=== PATIENT | male | born 1940 | race Caucasian/White ===

== ENCOUNTER 2018-02-02 08:37 | Day surgery (SDC) | payer MEDICARE, OTHER ==
[~2018-02-02 08:37] MED LIST: Cefuroxime 10 MG/ML SYRINGE EYERT SCH; Lidocaine 1% PF 2 ML SDV INJECT SCH; Pilocarpine 4% Ophth Soln 15 ML Bot EYERT SCH
[2018-02-02] MEDS: Polymyxin B/Trimethoprim 10 ML Bottle EYERT SCH ×3 (09:07→10:52)
--- NOTE | 2018-02-02 09:11 | PCM.PREANE ---
Preanesthetic Assessment - Procedure Proposed Procedure: cataract right eye - Anesthesia/Transfusion/Family Hx Anesthesia History: Prior Anesthesia Without Reaction Family History of Anesthesia Reaction: No Transfusion History: No Prior Transfusion(s) - Review of Systems General: No Symptoms Pulmonary: Shortness of Breath (used to smoke) Cardiovascular: No Symptoms Gastrointestinal: Diarrhea, Other (crohns) Neurological: No Symptoms Other: Reports: Sinus Problem - Physical Assessment NPO Status Date: 02/01/18 NPO Status Time: 21:00 (water 0730 sip) Pulse: 86 O2 Sat by Pulse Oximetry: 93 Respiratory Rate: 16 Blood Pressure: 136/84 Temperature: 97.7 F Height: 5 ft 11 in Weight: 68.039 kg ASA Class: 2 Mental Status: Alert & Oriented x3 Airway Class: Mallampati = 1 Dentition: Reports: Normal Dentition (and bottom), Dentures Thyro-Mental Finger Breadths: 3 Mouth Opening Finger Breadths: 3 ROM/Head Extension: Full Lungs: Clear to Auscultation, Normal Respiratory Effort Cardiovascular: Regular Rate, Regular Rhythm - Allergies Allergies/Adverse Reactions: Allergies Allergy/AdvReac Type Severity Reaction Status Date / Time No Known Allergies Allergy Verified 06/15/15 00:59 - Blood Blood Available: No - Acknowledgements Anesthesia Type Planned: MAC Pt an Appropriate Candidate for the Planned Anesthesia: Yes Alternatives and Risks of Anesthesia Discussed w Pt/Guardian: Yes Pt/Guardian Understands and Agrees with Anesthesia Plan: Yes PreAnesthesia Questionnaire Cardiovascular History: Reports: None Respiratory History: Reports: Asthma Other Gastrointestinal History: crohns Genitourinary History: Reports: Other (See Below) (kidney stones) Musculoskeletal History: Reports: Arthritis (little hands and back) Oncologic (Cancer) History: Reports: None - Past Surgical History Neurological Surgical History: Reports: Other (See Below) (spur off back) - History Comment History Comment: no meds - SUBSTANCE USE Smoking Status *Q: Former Smoker (quit 6 years ago) Tobacco Use Within Last Twelve Months: No Second Hand Smoke Exposure: No Days Per Week of Alcohol Use: 0 Recreational Drug Use History: No - CURRENT (IN HOUSE) MEDS Current Meds: Current Medications Brimonidine Tartrate (Alphagan 0.2% Ophth Soln) 0 ml EYERT ASDIRECTED NIURKA Stop: 02/02/18 19:00 Cefuroxime Sodium (Zinacef) 0 mg EYERT ASDIRECTED NIURKA Stop: 02/02/18 19:00 Lidocaine HCl (Xylocaine-Mpf 1%) 0 ml INJECT ASDIRECTED NIURKA Stop: 02/02/18 19:00 Phenylephrine HCl ([place]-Synephrine 2.5% Ophth Soln) 0 ml EYERT ASDIRECTED NIURKA Stop: 02/02/18 19:00 Pilocarpine HCl (Pilocar 4% Ophth Soln) 0 ml EYERT ASDIRECTED NIURKA Stop: 02/02/18 19:00 Polymyxin/Trimethoprim Sulfate (Polytrim Ophth Soln) 0 ml EYERT ASDIRECTED NIURKA Stop: 02/02/18 19:00 Tetracaine HCl (Tetracaine 0.5% Steri-Unit Rosita) 0 ml EYERT ASDIRECTED NIURKA Stop: 02/02/18 19:00 Tropicamide (Mydriacyl 1% Ophth Soln) 0 ml EYERT ASDIRECTED NIURKA Stop: 02/02/18 19:00
[2018-02-02] MEDS: Brimonidine 0.2% Ophth Soln 5 ML Bottle EYERT SCH ×3 (09:14→10:52)
[2018-02-02] MEDS: Phenylephrine 2.5% Ophth Soln 2 ML Bot EYERT SCH ×6 (09:20→10:36)
[2018-02-02] MEDS: Tropicamide 1% Ophth Soln 3 ML Bottle EYERT SCH ×4 (09:25→10:13)
[2018-02-02] MEDS: Tetracaine HCl/PF 0.5% 4 ML Bottle EYERT SCH ×2 (10:26→10:43)
--- NOTE | 2018-02-02 11:02 | PCM48HPAN ---
Post Anesthesia Note - EVALUATION WITHIN 48HRS OF ANESTHETIC Vital Signs in Normal Range: Yes Patient Participated in Evaluation: Yes Respiratory Function Stable: Yes Airway Patent: Yes Cardiovascular Function Stable: Yes Hydration Status Stable: Yes Pain Control Satisfactory: Yes Nausea and Vomiting Control Satisfactory: Yes Mental Status Recovered: Yes Pulse Rate: 86 SaO2: 100 Resp Rate: 16 Temperature: 36.5 C Blood Pressure: 136/84 Pulse Rate: 70
[2018-02-02 11:07] VITALS: BP 119/77
== END 2018-02-02 11:04 | disposition home or self-care (01) ==
LOC: JD.SDS 08:37
PROVIDERS: ATTEND Ophthalmology
DX: H25.813 Combined forms of age-related cataract, bilateral (principal); H40.002 Preglaucoma, unspecified, left eye; H11.823 Conjunctivochalasis, bilateral; H02.831 Dermatochalasis of right upper eyelid; H02.834 Dermatochalasis of left upper eyelid; M19.90 Unspecified osteoarthritis, unspecified site; J45.909 Unspecified asthma, uncomplicated; K50.90 Crohn's disease, unspecified, without complications; Z87.891 Personal history of nicotine dependence
CPT/HCPCS: 66984; C1780; J0697; J2001; A9270-GY

== ENCOUNTER 2018-03-02 07:46 | Day surgery (SDC) | payer MEDICARE, OTHER ==
--- NOTE | 2018-03-02 08:01 | PCM.PREANE ---
Preanesthetic Assessment - Anesthesia/Transfusion/Family Hx Anesthesia History: Prior Anesthesia Without Reaction Transfusion History: No Prior Transfusion(s) - Review of Systems General: No Symptoms, Other (arthritis) Pulmonary: Shortness of Breath, Other (asthma) Cardiovascular: No Symptoms Gastrointestinal: Other (crohns disease) Neurological: No Symptoms Other: Reports: None - Physical Assessment NPO Status Date: 03/01/18 NPO Status Time: 22:00 Pulse: 89 O2 Sat by Pulse Oximetry: 94 Blood Pressure: 127/80 Weight: 68.039 kg ASA Class: 3 Mental Status: Alert & Oriented x3 Airway Class: Mallampati = 1 Dentition: Reports: Normal Dentition Thyro-Mental Finger Breadths: 3 Mouth Opening Finger Breadths: 3 ROM/Head Extension: Full Lungs: Clear to Auscultation, Normal Respiratory Effort Cardiovascular: Regular Rate, Regular Rhythm - Allergies Allergies/Adverse Reactions: Allergies Allergy/AdvReac Type Severity Reaction Status Date / Time No Known Allergies Allergy Verified 03/01/18 10:08 - Blood Blood Available: No Product(s) Available: None - Anesthesia Plan Pre-Op Medication Ordered: None - Acknowledgements Anesthesia Type Planned: MAC Pt an Appropriate Candidate for the Planned Anesthesia: Yes Alternatives and Risks of Anesthesia Discussed w Pt/Guardian: Yes Pt/Guardian Understands and Agrees with Anesthesia Plan: Yes PreAnesthesia Questionnaire Cardiovascular History: Reports: None Respiratory History: Reports: Asthma Other Gastrointestinal History: crohns Genitourinary History: Reports: Other (See Below) (kidney stones) Musculoskeletal History: Reports: Arthritis (little hands and back) Oncologic (Cancer) History: Reports: None - Past Surgical History Neurological Surgical History: Reports: Other (See Below) (spur off back) - History Comment History Comment: no meds - HOME MEDS Home Medications: Home Meds . [No Known Home Meds] 03/01/18 [History] - CURRENT (IN HOUSE) MEDS Current Meds: Current Medications Brimonidine Tartrate (Alphagan 0.2% Ophth Soln) 0 ml EYELF ASDIRECTED NIURKA Stop: 03/02/18 18:00 Cefuroxime Sodium (Zinacef) 0 mg EYELF ASDIRECTED NIURKA Stop: 03/02/18 18:00 Lidocaine HCl (Xylocaine-Mpf 1%) 0 ml INJECT ASDIRECTED NIURKA Stop: 03/02/18 18:00 Phenylephrine HCl ([place]-Synephrine 2.5% Ophth Soln) 0 ml EYELF ASDIRECTED NIURKA Stop: 03/02/18 18:00 Pilocarpine HCl (Pilocar 4% Ophth Soln) 0 ml EYELF ASDIRECTED NIURKA Stop: 03/02/18 18:00 Polymyxin/Trimethoprim Sulfate (Polytrim Ophth Soln) 0 ml EYELF ASDIRECTED NIURKA Stop: 03/02/18 18:00 Tetracaine HCl (Tetracaine 0.5% Steri-Unit Rosita) 0 ml EYELF ASDIRECTED NIURKA Stop: 03/02/18 18:00 Tropicamide (Mydriacyl 1% Ophth Soln) 0 ml EYELF ASDIRECTED NIURKA Stop: 03/02/18 18:00
[2018-03-02] MEDS: Phenylephrine 2.5% Ophth Soln 2 ML Bot EYELF SCH ×6 (08:09→10:19)
[2018-03-02] MEDS: Tetracaine HCl/PF 0.5% 4 ML Bottle EYELF SCH ×3 (08:10→10:25)
[2018-03-02] MEDS: Cefuroxime 10 MG/ML SYRINGE EYELF SCH ×2 (08:10→10:33)
[2018-03-02] MEDS: Lidocaine 1% PF 2 ML SDV INJECT SCH ×2 (08:10→10:25)
[2018-03-02] MEDS: Pilocarpine 4% Ophth Soln 15 ML Bot EYELF SCH ×2 (08:11→10:34)
[2018-03-02] MEDS: Brimonidine 0.2% Ophth Soln 5 ML Bottle EYELF SCH ×4 (08:11→10:34)
[2018-03-02] MEDS: Polymyxin B/Trimethoprim 10 ML Bottle EYELF SCH ×4 (08:12→10:34)
[2018-03-02] MEDS: Tropicamide 1% Ophth Soln 15 ML Bottle EYELF SCH ×4 (08:45→09:46)
--- NOTE | 2018-03-02 10:36 | PCM48HPAN ---
Post Anesthesia Note - EVALUATION WITHIN 48HRS OF ANESTHETIC Vital Signs in Normal Range: Yes Patient Participated in Evaluation: Yes Respiratory Function Stable: Yes Airway Patent: Yes Cardiovascular Function Stable: Yes Hydration Status Stable: Yes Pain Control Satisfactory: Yes Nausea and Vomiting Control Satisfactory: Yes Mental Status Recovered: Yes Pulse Rate: 66 SaO2: 100 Resp Rate: 16 Temperature: 36.9 C Blood Pressure: 128/81
[2018-03-02 10:45] VITALS: BP 112/64
== END 2018-03-02 10:41 | disposition home or self-care (01) ==
LOC: JD.SDS 07:46
PROVIDERS: ATTEND Ophthalmology
DX: H25.812 Combined forms of age-related cataract, left eye (principal); H40.003 Preglaucoma, unspecified, bilateral; J45.909 Unspecified asthma, uncomplicated; J32.9 Chronic sinusitis, unspecified; K50.90 Crohn's disease, unspecified, without complications; M19.90 Unspecified osteoarthritis, unspecified site; Z79.899 Other long term (current) drug therapy; Z98.41 Cataract extraction status, right eye; Z96.1 Presence of intraocular lens; Z87.891 Personal history of nicotine dependence; Z83.518 Family history of other specified eye disorder
CPT/HCPCS: 66984; C1780; J0697; A9270-GY; J2001

== ENCOUNTER 2020-11-23 08:23 | Emergency (ER) | payer MEDICARE, OTHER ==
--- NOTE | 2020-11-23 08:36 | EDM.PDOC ---
ED HPI GENERAL MEDICAL PROBLEM - General Chief Complaint: Genitourinary Problem Stated Complaint: BLOOD IN URINE Time Seen by Provider: 11/23/20 08:44 Source of Information: Reports: Patient History Limitations: Reports: No Limitations - History of Present Illness INITIAL COMMENTS - FREE TEXT/NARRATIVE: 80-year-old male presents to the ED with gross hematuria which she started noting yesterday. It is painless. Urine is dark blood in color. Was slightly more cranberry juice looking yesterday. Some clots appreciated this morning with passage of urine. It did not stop his urinary flow. He has no backache. No fever chills nausea or vomiting. No previous surgery on his prostate gland. Known to have kidney stones. Last problems with kidney stones was in 2014 when he passed a stone. No history of penile or perianal trauma. Patient denies taking aspirin or any other antiplatelet medications or blood thinners. He feels fine otherwise. 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.) - Related Data Allergies Allergy/AdvReac Type Severity Reaction Status Date / Time No Known Allergies Allergy Verified 03/02/18 08:05 Home Meds: Home Meds Betamethasone Valerate 45 gm TP DAILY #1 tube 11/23/20 [Rx] levoFLOXacin [Levaquin] 500 mg PO DAILY #9 tab 11/23/20 [Rx] Past Medical History HEENT History: Reports: Cataract (Bilateral cataract extractions and intraocular lens implants.) Cardiovascular History: Reports: None Respiratory History: Reports: Asthma Other Gastrointestinal History: crohns Genitourinary History: Reports: Other (See Below) (kidney stones) Musculoskeletal History: Reports: Arthritis (little hands and back) Oncologic (Cancer) History: Reports: None - Past Surgical History GI Surgical History: Reports: Other (See Below) (Left lower quadrant colostomy performed in 1986 for diverticulitis. For what ever reason he has never had it reversed.) Neurological Surgical History: Reports: Other (See Below) (spur off back) - History Comment History Comment: no meds Social & Family History - Living Situation & Occupation Living situation: Reports: Occupation: Retired ED ROS GENERAL - Review of Systems Review Of Systems: See Below Constitutional: Denies: Fever, Chills, Malaise, Weakness, Fatigue, Decreased Appetite, Weight Loss HEENT: Reports: Glasses, Other (Patient has had previous cataract extractions and intraocular lens implants) Respiratory: Reports: No Symptoms Cardiovascular: Reports: No Symptoms Endocrine: Reports: No Symptoms GI/Abdominal: Reports: No Symptoms : Reports: Other (Painless gross hematuria starting yesterday. No known BPH. No previous urinary tract infection. Nocturia usually 1 and often does not get up at all.). Denies: Dysuria, Flank Pain, Irregular Menses, Pain Musculoskeletal: Reports: Joint Pain Skin: Reports: No Symptoms (Knees hips low back neck and shoulders at times.). Denies: Bruising Neurological: Reports: No Symptoms Psychiatric: Reports: No Symptoms Hematologic/Lymphatic: Reports: No Symptoms Immunologic: Reports: No Symptoms ED EXAM, RENAL/ - Physical Exam Exam: See Below Exam Limited By: No Limitations General Appearance: Alert, WD/WN, No Apparent Distress, Other (Temperature is 36.3 degrees. Heart rate is 89 and sinus. Respiratory is 18 with O2 sats of 95% room air BP slightly elevated 151/81) Eye Exam: Bilateral Eye: Normal Inspection (No blepharal pallor or scleral icterus), PERRL Throat/Mouth: Normal Inspection, Normal Lips, Normal Oropharynx Head: Atraumatic, Normocephalic Neck: Normal Inspection, Supple, Non-Tender, Full Range of Motion. No: Lymphadenopathy (L), Lymphadenopathy (R) Respiratory/Chest: No Respiratory Distress, Lungs Clear, Normal Breath Sounds, No Accessory Muscle Use Cardiovascular: Normal Peripheral Pulses, Regular Rate, Rhythm, No Edema, No Gallop, No Murmur, No Rub GI/Abdominal: Normal Bowel Sounds, Soft, Non-Tender, No Organomegaly, No Distention, No Abnormal Bruit, Pelvis Stable, Other (Colostomy draining dark brown fluid left lower quadrant of the abdomen.) (Male) Exam: Other (Urethral meatus is normal. Glans penis is normal as well. Foreskin is easily retractable.). No: Circumcised Back Exam: Normal Inspection, Full Range of Motion. No: CVA Tenderness (L), CVA Tenderness (R) Extremities: Normal Inspection, Normal Range of Motion, Non-Tender, No Pedal Edema Neurological: Alert, Oriented, CN II-XII Intact, Normal Cognition Psychiatric: Normal Affect, Normal Mood Skin Exam: Warm, Dry, Intact, Normal Color, No Rash Course - Vital Signs Last Recorded V/S: Last Vital Signs Temp 36.3 C 11/23/20 08:38 Pulse 89 11/23/20 08:38 Resp 18 11/23/20 08:38 BP 151/81 H 11/23/20 08:38 Pulse Ox 95 11/23/20 08:38 - Orders/Labs/Meds Orders: Active Orders 24 hr Category Date Time Status Abdomen Pelvis w Cont [CT] Stat Exams 11/23/20 08:51 Taken CULTURE URINE [RM] Stat Lab 11/23/20 08:49 Stop Req Dextrose 5%-0.9% NaCl [Dextrose 5%-Normal Saline] 1,000 Med 11/23/20 09:00 Active ml IV ASDIRECTED Sodium Chloride 0.9% [Saline Flush] Med 11/23/20 08:56 Active 10 ml FLUSH ONETIME PRN Medication Orders Dextrose/Sodium Chloride (Dextrose 5%-Normal Saline) 1,000 mls @ 150 mls/hr IV ASDIRECTED NIURKA Last Infusion: 11/23/20 10:49 Dose: 999 mls/hr Documented by: Admin: 11/23/20 09:03 Dose: 150 mls/hr Documented by: AMBER Sodium Chloride (Sodium Chloride 0.9% 10 Ml Syringe) 10 ml FLUSH ONETIME PRN PRN Reason: Keep Vein Open Last Admin: 11/23/20 10:23 Dose: 10 ml Documented by: MCKENZIE Labs: Laboratory Tests 11/23/20 11/23/20 11/23/20 Range/Units 08:49 09:03 09:03 WBC 4.73 (4.23-9.07) K/mm3 RBC 4.20 L (4.63-6.08) M/mm3 Hgb 13.1 L (13.7-17.5) gm/dl Hct 40.4 (40.1-51.0) % MCV 96.2 H (79.0-92.2) fl MCH 31.2 (25.7-32.2) pg MCHC 32.4 (32.2-35.5) g/dl RDW Std Deviation 50.5 H (35.1-43.9) fL Plt Count 233 (163-337) K/mm3 MPV 9.4 (9.4-12.3) fl Neut % (Auto) 59.7 (34.0-67.9) % Lymph % (Auto) 22.8 (21.8-53.1) % [place] % (Auto) 11.8 (5.3-12.2) % Eos % (Auto) 5.1 (0.8-7.0) Baso % (Auto) 0.4 (0.1-1.2) % Neut # (Auto) 2.82 (1.78-5.38) K/mm3 Lymph # (Auto) 1.08 L (1.32-3.57) K/mm3 [place] # (Auto) 0.56 (0.30-0.82) K/mm3 Eos # (Auto) 0.24 (0.04-0.54) K/mm3 Baso # (Auto) 0.02 (0.01-0.08) K/mm3 PT (9.7-12.0) SECONDS INR APTT (21.7-31.4) SECONDS Sodium 142 (136-145) mEq/L Potassium 3.7 (3.5-5.1) mEq/L Chloride 105 (98-107) mEq/L Carbon Dioxide 28 (21-32) mEq/L Anion Gap 12.7 (5-15) BUN 17 (7-18) mg/dL Creatinine 1.4 H (0.7-1.3) mg/dL Est Cr Clr Drug Dosing 41.85 mL/min Estimated GFR (MDRD) 49 (>60) mL/min BUN/Creatinine Ratio 12.1 L (14-18) Glucose 91 (83-115) mg/dL Calcium 8.4 L (8.5-10.1) mg/dL Total Bilirubin 0.5 (0.2-1.0) mg/dL AST 21 (15-37) U/L ALT 23 (16-63) U/L Alkaline Phosphatase 78 (46-116) U/L C-Reactive Protein 0.2 (<1.0) mg/dL Total Protein 6.8 (6.4-8.2) g/dl Albumin 3.3 L (3.4-5.0) g/dl Globulin 3.5 gm/dL Albumin/Globulin Ratio 0.9 L (1-2) PSA Screen (0.0-4.0) ng/mL Urine Color Brown H (Yellow) Urine Appearance Cloudy H (Clear) Urine pH 6.0 (5.0-8.0) Ur Specific [place] > or = 1.030 (1.005-1.030) Urine Protein 3+ H (Negative) Urine Glucose (UA) Negative (Negative) Urine Ketones Negative (Negative) Urine Occult Blood 3+ H (Negative) Urine Nitrite Negative (Negative) Urine Bilirubin 2+ H (Negative) Urine Urobilinogen 0.2 (0.2-1.0) Ur Leukocyte Esterase Trace H (Negative) Urine RBC Too numerous to cnt H (0-5) /hpf Urine WBC 5-10 H (0-5) /hpf Ur Transition Epith Cell 0-5 (0-5) Amorphous Sediment Many H (NOT SEEN) /hpf Urine Bacteria Many H (FEW) /hpf Urine Mucus Many H (FEW) /hpf 11/23/20 11/23/20 Range/Units 09:03 09:03 WBC (4.23-9.07) K/mm3 RBC (4.63-6.08) M/mm3 Hgb (13.7-17.5) gm/dl Hct (40.1-51.0) % MCV (79.0-92.2) fl MCH (25.7-32.2) pg MCHC (32.2-35.5) g/dl RDW Std Deviation (35.1-43.9) fL Plt Count (163-337) K/mm3 MPV (9.4-12.3) fl Neut % (Auto) (34.0-67.9) % Lymph % (Auto) (21.8-53.1) % [place] % (Auto) (5.3-12.2) % Eos % (Auto) (0.8-7.0) Baso % (Auto) (0.1-1.2) % Neut # (Auto) (1.78-5.38) K/mm3 Lymph # (Auto) (1.32-3.57) K/mm3 [place] # (Auto) (0.30-0.82) K/mm3 Eos # (Auto) (0.04-0.54) K/mm3 Baso # (Auto) (0.01-0.08) K/mm3 PT 10.0 (9.7-12.0) SECONDS INR 0.93 APTT 25.4 (21.7-31.4) SECONDS Sodium (136-145) mEq/L Potassium (3.5-5.1) mEq/L Chloride (98-107) mEq/L Carbon Dioxide (21-32) mEq/L Anion Gap (5-15) BUN (7-18) mg/dL Creatinine (0.7-1.3) mg/dL Est Cr Clr Drug Dosing mL/min Estimated GFR (MDRD) (>60) mL/min BUN/Creatinine Ratio (14-18) Glucose (83-115) mg/dL Calcium (8.5-10.1) mg/dL Total Bilirubin (0.2-1.0) mg/dL AST (15-37) U/L ALT (16-63) U/L Alkaline Phosphatase (46-116) U/L C-Reactive Protein (<1.0) mg/dL Total Protein (6.4-8.2) g/dl Albumin (3.4-5.0) g/dl Globulin gm/dL Albumin/Globulin Ratio (1-2) PSA Screen 1.4 (0.0-4.0) ng/mL Urine Color (Yellow) Urine Appearance (Clear) Urine pH (5.0-8.0) Ur Specific [place] (1.005-1.030) Urine Protein (Negative) Urine Glucose (UA) (Negative) Urine Ketones (Negative) Urine Occult Blood (Negative) Urine Nitrite (Negative) Urine Bilirubin (Negative) Urine Urobilinogen (0.2-1.0) Ur Leukocyte Esterase (Negative) Urine RBC (0-5) /hpf Urine WBC (0-5) /hpf Ur Transition Epith Cell (0-5) Amorphous Sediment (NOT SEEN) /hpf Urine Bacteria (FEW) /hpf Urine Mucus (FEW) /hpf Meds: Medications Generic Name Dose Route Start Last Admin Trade Name Carmina PRN Reason Stop Dose Admin Dextrose/Sodium Chloride 1,000 mls @ 150 mls/hr 11/23/20 09:00 11/23/20 10:49 Dextrose 5%-Normal Saline IV 999 mls/hr ASDIRECTED NIURKA Infusion Sodium Chloride 10 ml 11/23/20 08:56 11/23/20 10:23 Sodium Chloride 0.9% 10 Ml Syringe FLUSH 10 ml ONETIME PRN Administration Keep Vein Open Discontinued Medications Generic Name Dose Route Start Last Admin Trade Name Frenany PRN Reason Stop Dose Admin Iopamidol 100 ml 11/23/20 08:56 11/23/20 10:23 Iopamidol 612 Mg/Ml 100 Ml Bottle IVPUSH 11/23/20 08:57 100 ml ONETIME ONE Administration Levofloxacin 500 mg 11/23/20 11:01 11/23/20 11:14 Levofloxacin 250 Mg Tab PO 11/23/20 11:02 500 mg ONETIME ONE Administration - Radiology Interpretation Free Text/Narrative:: 80-year-old male presents to the ED with history of gross hematuria starting yesterday. It remains painless. He is passing some clots at times but it is not interrupted his urinary flow. Denies any backache nausea or vomiting. He has a remote history of kidney stones with the last attack in about 2014. No problems with his prostate his knowledge and yearly PSAs have been normal. Urine passed in the ED is very dark bloody in color. Benign abdominal examination benign genitourinary exam. Plan urinalysis will be obtained. Routine labs will be obtained as well. Baseline hemoglobin will be obtained. PSA will be repeated. Coags will be done as well. Plan CT the abdomen with IV contrast only. - Re-Assessments/Exams Free Text/Narrative Re-Assessment/Exam: 11/23/20 10:00 Total white count is normal at 4.73. Differential shows 60% neutrophils on the auto differential. Hemoglobin is 13.1 with hematocrit of 40.4. Platelet count is normal at 233,000. PT is 10.0 with an INR of 0.93 PTT is 25.4 urine is dark brown in color. 3+ proteinuria 3+ occult blood 2+ bilirubin and trace of leukocyte Estrace on the dip. The micro reveals too numerous to count red blood cells and 5-10 WBCs. Many amorphous segment many bacteria appreciated. Therefore urine culture will be ordered. 11/23/20 10:10 Chemistry is now back. Sodium is 142 with a potassium of 3.7. Chloride 105 with a bicarb of 28. Anion gap is 12.7. BUN is 17 with a creatini ne of 1.4 and a GFR of 49. Calcium is 8.4 liver function normal C-reactive protein is less than 0.2. Total protein 6.8 with an albumin fraction of 3.3. Renal function is borderline for IV contrast but we will volume load the patient once he returns from CT. 11/23/20 11:03 CT of the abdomen and pelvis has been performed with IV contrast only. It does reveal a small hiatal hernia. Visualized portions of the lung bases are clear. Liver appears homogeneous . There is a mass involving the right lower lobe of the liver. This has the appearance of a hemangioma. Is approximately 3 cm in size with some peripheral nodular enhancement. No calcified gallstones are evident. Pancreas appears normal. Spleen is normal. Both kidneys filled with contrast adequately and there is no evidence of abnormalities within the kidneys or ureters. Compared to previous ultrasound the left-sided hydronephrosis and ureteral stone have cleared. The previous stone in the right renal collecting system is no longer evident either. The left kidney again contains a cyst. Urinary bladder shows slight thickening of the short of the bladder suggesting hypertrophy versus infection. There is scattered increased stool throughout the colon. He has a ileostomy in his left upper quadrant of the abdomen. There are operative changes in the rectal fossa. No evidence of appendicitis. No free air or significant free fluid in the pelvis. The abdominal aorta is nonaneurysmal. Atherosclerotic calcifications are present. No enlarged lymph nodes identified. Question mild asymmetric wall thickening along the left posterior aspect of the urinary bladder. Degenerative changes are again appreciated in the lower spine and hips. I could not visualize the cecum or the appendix. There is no bowel obstruction. 11/23/20 11:00: I discussed the findings with the patient. No definitive findings to account for gross hematuria. He therefore will have to see urology in consultation with a view to a cystoscopy. I will place him on Levaquin 500 mg once daily starting today in the ED. He will take Levaquin once daily for the next 10 days Departure - Departure Time of Disposition: 11:00 Disposition: Home, Self-Care 01 Condition: Fair Clinical Impression: Gross hematuria Urinary tract infection Qualifiers: Urinary tract infection type: acute cystitis Hematuria presence: with hematuria Qualified Code(s): N30.01 - Acute cystitis with hematuria Eczema Qualifiers: Eczema type: other Qualified Code(s): L30.8 - Other specified dermatitis - Discharge Information *PRESCRIPTION DRUG MONITORING PROGRAM REVIEWED*: Not Applicable *COPY OF PRESCRIPTION DRUG MONITORING REPORT IN PATIENT NOBLE: Not Applicable Prescriptions: Betamethasone Valerate 45 gm TP DAILY #1 tube levoFLOXacin [Levaquin] 500 mg PO DAILY #9 tab Instructions: Eczema, Urinary Tract Infection, Adult, Urosepsis, Adult, Hematuria, Adult Referrals: PCP,None [Primary Care Provider] - Forms: ED Department Discharge Additional Instructions: Evaluation in the emergency room today in regards to acute onset of bloody urine. Passage of urine is painless. CT scan of the abdomen and pelvis was performed and does not reveal any abnormalities of the kidneys or the drainage tubes called the ureters down to the urinary bladder. The urinary bladder does have a slightly thickened wall particularly the posterior aspect suggesting it may be working hard to force all of the urine out through a narrow urethra in the prostate gland. The urinalysis does suggest a low-grade infection in the urine as well. Suggest plenty of fluids to keep the urine flowing so as not to clot and occlude the passageway. Antibiotic is to be Levaquin 500 mg once daily for 10 days. First tablet was provided through the ED today. Next tablet is due tomorrow morning. Suggest follow-up with your personal care provider in 10 days time to have the urine rechecked if there is still blood in the urine or blood persists in the urine over the next 4 days then follow-up is required. You would need to see a urologist for them department perform a scope up into the urinary bladder to look for any cancer. Second problem was a area of eczema on the posterior aspect of your left calf. Prescription written for betamethasone valerate ointment to be applied to this area every night at bedtime until the rash clears up. There was still likely be 14 to 20 days to clear up completely. Return to the emergency room if you are having any troubles passing water or unable to pass your water due to blood clots occluding the passageway. Sepsis Event Note (ED) - Focused Exam Vital Signs: Vital Signs Temp Pulse Resp BP Pulse Ox 11/23/20 08:38 36.3 C 89 18 151/81 H 95 - My Orders Last 24 Hours: My Active Orders 11/23/20 08:49 CULTURE URINE [RM] Stat 11/23/20 08:51 Abdomen Pelvis w Cont [CT] Stat 11/23/20 08:56 Sodium Chloride 0.9% [Saline Flush] 10 ml FLUSH ONETIME PRN 11/23/20 09:00 Dextrose 5%-0.9% NaCl [Dextrose 5%-Normal Saline] 1,000 ml IV ASDIRECTED - Assessment/Plan Last 24 Hours: My Active Orders 11/23/20 08:49 CULTURE URINE [RM] Stat 11/23/20 08:51 Abdomen Pelvis w Cont [CT] Stat 11/23/20 08:56 Sodium Chloride 0.9% [Saline Flush] 10 ml FLUSH ONETIME PRN 11/23/20 09:00 Dextrose 5%-0.9% NaCl [Dextrose 5%-Normal Saline] 1,000 ml IV ASDIRECTED
[2020-11-23 08:41] VITALS: BP 151/81; PULSE 89
[2020-11-23] MEDS ORDERED: Sodium Chloride 0.9% 10 ML Syringe FLUSH PRN (08:56)
[2020-11-23] MEDS ORDERED: Iopamidol 612 MG/ML 100 ML Bottle IVPUSH ONE (08:56)
[2020-11-23] MEDS ORDERED: Dextrose 5%-0.9% NaCl 1,000 ML IV SCH (09:00)
[2020-11-23] MEDS ORDERED: Levofloxacin 250 MG Tab PO ONE (11:01)
--- NOTE | 2020-11-23 12:03 | CT ---
CT abdomen and pelvis Technique: Multiple axial sections were obtained from above the dome of the diaphragm inferiorly through the pubic symphysis. Intravenous contrast was utilized. No oral contrast has been given. Reconstructed coronal and sagittal images were obtained. Delayed images were also obtained through the abdomen and pelvis. Comparison: Prior CT abdomen and pelvis exam dated 06/15/15. Findings: Visualized lung bases show nothing acute. Liver shows a low density lesion within the inferior right lobe. This shows increasing peripheral enhancement on delayed images. This is most likely due to a small hemangioma. Spleen size is normal. Adrenal glands show no nodule. No abnormality is appreciated within the pancreas. Kidneys show symmetric contrast enhancement. There is a cyst being seen within the left kidney measuring 2.6 cm. A second cyst is also noted next to the larger cyst measuring approximately 1.8 cm. Other portions of the kidneys appear unremarkable. On delayed images there is contrast excretion from both kidneys into the ureters as well as into the bladder. Bladder wall shows some asymmetric thickening which is believed to represent a chronic finding as this area is similar to prior studies back to 2015. No pelvic mass or adenopathy is seen. No free fluid or inflammatory change is appreciated. Bone window settings were reviewed which show degenerative change at L4-5 and L5-S1. No acute osseous finding is appreciated. Impression: 1. Bilateral contrast enhancement of both kidneys. Two adjacent cysts seen within the left kidney. Delayed images show contrast within both ureters and into the bladder. 2. Bladder wall is slightly asymmetrically thickened which is believed to be within normal limits as this finding is fairly similar to prior exam. 3. Hemangioma within the inferior right lobe of the liver. 4. Other findings believed to be incidental as noted above. Diagnostic code #2 I agree with preliminary report from [facility], finalized on 11/23/20, 12:03 PM CDT
== END 2020-11-23 11:33 | disposition home or self-care (01) ==
LOC: JD.ED 08:23
DX: N30.01 Acute cystitis with hematuria (principal); L30.8 Other specified dermatitis; J45.909 Unspecified asthma, uncomplicated
CPT/HCPCS: 36415; 74177; 80053; 81001; 85025; 85610; 85730; 86140; 87086; 99284; A9270; G0103; J7042; Q9967; 99283

== ENCOUNTER 2022-12-28 07:59 | Emergency (ER) | payer MEDICARE, OTHER ==
[2022-12-28 08:10] VITALS: BP 156/86; PULSE 86
[2022-12-28] MEDS ORDERED: Sodium Chloride 0.9% 10 ML Syringe FLUSH ONE (08:25)
[2022-12-28] MEDS ORDERED: Lactated Ringers 500 ML IV ONE ×2 (08:30→10:18)
[2022-12-28 08:56] LABS: BASOPHILS ABSOLUTE AUTO 0.02 K/mm3 (0.01-0.08); BASOPHILS PERCENT AUTO 0.3 % (0.1-1.2); EOSINOPHILS ABSOLUTE AUTO 0.23 K/mm3 (0.04-0.54); EOSINOPHILS PERCENT AUTO 3.7 (0.8-7.0); HEMATOCRIT 42.5 % (40.1-51.0); HEMOGLOBIN 13.9 gm/dl (13.7-17.5); IMMATURE GRAN ABSOLUTE AUTO 0.02 K/mm3 (0.00-0.10); IMMATURE GRAN PERCENT AUTO 0.3 % (<=1.0); LYMPHOCYTES ABSOLUTE AUTO 0.95 K/mm3 (1.32-3.57); LYMPHOCYTES PERCENT AUTO 15.2 % (21.8-53.1); MEAN CORPUSCULAR HEMOGLOBIN 32.6 pg (25.7-32.2); MEAN CORPUSCULAR HGB CONC 32.7 g/dl (32.2-35.5); MEAN CORPUSCULAR VOLUME 99.5 fl (79.0-92.2); MEAN PLATELET VOLUME 9.3 fl (9.4-12.3); MONOCYTES ABSOLUTE AUTO 0.56 K/mm3 (0.30-0.82); MONOCYTES PERCENT AUTO 8.9 % (5.3-12.2); NEUTROPHILS ABSOLUTE AUTO 4.48 K/mm3 (1.78-5.38); NEUTROPHILS PERCENT AUTO 71.6 % (34.0-67.9); PLATELET COUNT,PLT 215 K/mm3 (163-337); RED BLOOD CELL COUNT 4.27 M/mm3 (4.63-6.08); WHITE BLOOD CELL COUNT,WBC 6.26 K/mm3 (4.23-9.07)
[2022-12-28 09:31] LABS: A/G RATIO 0.8 (1-2); ALBUMIN 3.2 g/dl (3.4-5.0); ANION GAP 9.7 (5-15); BILIRUBIN TOTAL 0.7 mg/dL (0.2-1.0); BUN/CREATININE RATIO 12.9 (14-18); CALCIUM 8.6 mg/dL (8.5-10.1); CREATININE 1.4 mg/dL (0.7-1.3); EST CRCL DRUG DOSING (CG) 38.81 mL/min; POTASSIUM,K 3.7 mEq/L (3.5-5.1); PROTEIN TOTAL,TP 7.1 g/dl (6.4-8.2)
== END 2022-12-28 11:45 | disposition home or self-care (01) ==
LOC: JD.ED 07:59
DX: R42 Dizziness and giddiness (principal); J45.909 Unspecified asthma, uncomplicated
CPT/HCPCS: 36415; 70450; 80053; 84484; 85025; 93005; 96360; 96361; 99284; J3490; J7120; 93010

== ENCOUNTER 2023-04-14 20:22 | Emergency (ER) | payer MEDICARE, OTHER ==
[2023-04-14 20:35] VITALS: BP 155/82; PULSE 85
[2023-04-14] MEDS ORDERED: Sulfamethoxazole/Trimethoprim 800-160 MG Tab PO ONE (21:25)
== END 2023-04-14 21:42 | disposition home or self-care (01) ==
LOC: JD.ED 20:22
DX: T83.038A Leakage of other urinary catheter, initial encounter (principal); J45.909 Unspecified asthma, uncomplicated; Y84.6 Urinary catheterization as the cause of abnormal reaction of the patient, or of later complication, without mention of misadventure at the time of the procedure
CPT/HCPCS: 99283; A9270

== ENCOUNTER 2023-04-15 16:15 | Emergency (ER) | payer MEDICARE, OTHER ==
[2023-04-15 16:42] VITALS: BP 119/80; PULSE 76
== END 2023-04-15 16:32 ==
LOC: JD.ED 16:15
DX: Z46.6 Encounter for fitting and adjustment of urinary device (principal)
CPT/HCPCS: 99282